=== PATIENT | male | born 1965 ===

== ENCOUNTER 2021-12-04 20:46 | Emergency (ER) | payer SELFPAY ==
--- NOTE | 2021-12-04 21:45 | ER ---
Nurse's Notes [facility] Name: Raffaele Castellanos Age: 56 yrs Sex: Male : 1965 Arrival Date: 12/04/2021 Time: 20:49 Bed 2 Private MD: Diagnosis: Cardiac arrest, cause unspecified;Asystole Presentation: 12/04 20:45 Chief complaint: Chief complaint: EMS states: "We arrived on scene at 1958. CPR had tw5 already been started by bystander and fire department. They had already shocked him once prior to us arriving. Hamzah was placed CPR was continued. Patient has been in V-fib this entire time.". 20:45 Care prior to arrival: CPR via thumper performed by bystander performed by EMS was tw5 defibrillated and is still in progress Placed on backboard. Medication(s) given: 10 rounds of epi given, 2 rounds of bicarb, 300 mg of amiodarone, followed by another 150 mg of amiodarone. See EMS CODE summary placed on chart for times. IV initiated. 18 GA, EJ, as well as an IO in right leg. Compressions began prior to arrival. 20:45 Method Of Arrival: EMS: [facility] tw5 20:45 Acuity: ANNE 1 tw5 Historical: - Home Meds: 20:55 losartan 100 mg oral tab 1 tab once daily [Active]; metoprolol succinate oral [Active]; tw5 amlodipine 5 mg tab 1 tab once daily [Active]; clopidogrel 75 mg oral tab 1 tab once daily [Active]; atorvastatin 80 mg oral tab 1 tab once daily [Active]; aspirin 81 mg Oral cpDR [Active]; - PMHx: 20:55 Hyperlipidemia; Hypertension; Myocardial infarction; Diabetes mellitus; tw5 - PSHx: 20:55 None; tw5 - Code Status:: Full code. Screenin:23 Abuse screen: unable to obtain. Nutritional screening: unable to obtain. Tuberculosis tw5 screening: unable to obtain. Assessment: 20:45 CPR assessment: unresponsive, pupils fixed \\T\\ dilated, no respiratory effort, intubated, tw5 Ambu ventilation, cyanotic. Cardiac rhythm is V fib. General: Behavior is unresponsive. Neuro: Level of Consciousness is unresponsive. Cardiovascular: Heart tones absent. Respiratory: Airway via oral intubation. 20:47 Cardiac rhythm is asystole. tw5 21:15 Reassessment: Dr. Rinaldi speaking with patient's and brother at this time in Room lp1 11. 21:30 General: Lunablessing Becerra Arrived at the bedside. . tw5 21:34 General: Jeremy is contacting the set up technician at this time. . tw5 22:56 General: Qi Castellanos () [phone]. as6 23:54 General: Body being released to [facility] home. [phone]. tw5 Vital Signs: 20:45 Weight 90.72 kg (R); tw5 20:45 no vitals to obtain. tw5 ED Course: 20:49 Patient arrived in ED. tw5 20:49 Tae Rinaldi MD is Attending Physician. mh7 20:56 Police notified at 20:57 contacted [place] [employer] to call the Woods Manager for mw2 the patient. 20:59 eSjal Mckinney is Primary Nurse. tw5 21:05 Triage completed. tw5 21:23 Patient has correct armband on for positive identification. CPR. tw5 21:25 [facility] contacted. . tw5 21:43 Tae Rinaldi MD is Pronouncing Provider. 7 Administered Medications: No medications were administered Outcome: 20:47 Outcome Patient tw5 20:47 Patient : Time of 20:47 Pronounced by Tae Rinaldi MD OR notified 20:47 Condition: 23:54 Patient left the ED. tw5 Signatures: Ashley Lopez, RN RN lp1 Anna Marie Muro mw2 Tae Rinaldi MD MD 7 Sejal Mckinney tw5 Dewey Maldonado, RN RN as6 Corrections: (The following items were deleted from the chart) 21:05 20:55 Chief complaint: tw5 tw5
--- NOTE | 2021-12-04 21:45 | EDPHYS ---
Physician Documentation [facility] Name: Raffaele Castellanos Age: 56 yrs Sex: Male : 1965 Arrival Date: 12/04/2021 Time: 20:49 Bed 2 Private MD: ED Physician Tae Rinaldi HPI: 12/04 21:03 This 56 yrs old Male presents to ER via Unassigned with complaints of CPR. mh7 21:03 Preceding the arrest, the patient collapsed, was dyspneic. The arrest occurred at home. mh7 Pre-hospital course: The arrest was witnessed by family. Bystanders at the scene did not perform CPR. EMS care prior to arrival: initiation of ACLS, peripheral IV, was successfully placed. intubation was successfully performed, orally, oxygen, 100% by ET tube. backboard, EMS on scene time was 19:59. Time elapsed prior to ACLS is unknown. ACLS has been in progress for 45 minutes. ACLS details: Initial rhythm was V-fib. The presenting rhythm is asystole. Airway: oral intubation, Medications given by EMS prior to arrival - Epinephrine IV x 10 doses, Amiodarone 300 mg IV push given, Calcium chloride, sodium bicarbonate, Defibrillated X 11, Response to therapy: continued arrest. Unable to obtain HPI due to comatose state. According to EMS, they received a call for patient with shortness of breath. Unerupted seen approximately 5 minutes after call they noted patient was unresponsive and in V. fib. They initiated ACLS protocol including intubation with an 8.0 endotracheal tube. They placed a right tibial intraosseous line. Patient was given epinephrine total of 10 doses, calcium chloride, sodium bicarbonate, and 11 defibrillatory shocks. During ACLS patient went into asystole. Upon arrival to the ED, he remained in asystole and without any signs of life including no spontaneous respirations, no spontaneous heartbeat or pulse, no response to any stimuli, and fixed dilated pupils. CPR was discontinued upon arrival patient pronounced at 2046.. Historical: - Home Meds: 20:55 losartan 100 mg oral tab 1 tab once daily [Active]; metoprolol succinate oral [Active]; tw5 amlodipine 5 mg tab 1 tab once daily [Active]; clopidogrel 75 mg oral tab 1 tab once daily [Active]; atorvastatin 80 mg oral tab 1 tab once daily [Active]; aspirin 81 mg Oral cpDR [Active]; - PMHx: 20:55 Hyperlipidemia; Hypertension; Myocardial infarction; Diabetes mellitus; tw5 - PSHx: 20:55 None; tw5 - Code Status:: Full code. ROS: 21:03 Unable to obtain ROS due to comatose state. [facility] Exam: 21:03 Head/Face: Normocephalic, atraumatic. 7 21:03 Chest/axilla: Normal chest wall appearance and motion. Nontender with no deformity. No lesions are appreciated. 21:03 Skin: Warm, dry with normal turgor. Normal color with no rashes, no lesions, and no evidence of cellulitis. 21:03 Constitutional: The patient appears Unresponsive 21:03 Eyes: Periorbital structures: appear normal, Pupils: are fixed and dilated. 21:03 ENT: Endotracheal tube in place. 21:03 Neck: External neck: is normal. 21:03 Cardiovascular: Rate: actual rate is 0 bpm, Asystole, Rhythm: asystole, Pulses: not palpable, Heart sounds: Absent, Edema: is not appreciated, JVD: is not appreciated. 21:03 Respiratory: Breath sounds: Equal breath sounds bilaterally with [id number], Respiratory rate: 0 No spontaneous respirations. 21:03 Abdomen/GI: Inspection: abdomen appears normal. 21:03 Back: No abnormal findings. 21:03 Musculoskeletal/extremity: Right proximal tibia intraosseous IV, no abnormal findings. 21:03 Neuro: No spontaneous movement, no response to any stimuli. Vital Signs: 20:45 Weight 90.72 kg (R); tw5 20:45 no vitals to obtain. tw5 MDM: 21:37 Differential diagnosis: arrythmia, cardiac arrest, respiratory arrest, traumatic mh7 injury, overdose, asphyxiation, renal failure. 21:41 Data reviewed: vital signs, nurses notes, EMS record. ED course: Patient pronounced 7 at 2046. Discussed with patient's and [id number]. Patient staff to inform [employer].. 21:44 Patient medically screened. [facility] Administered Medications: No medications were administered Disposition: 21:41 . [facility] Disposition Summary: 12/04/21 21:44 Patient Location: [facility] [employer] [facility] Pronouncing Physician: Tae Rinaldi Time of : 20:47 12/04/2021 [facility] Diagnosis - Cardiac arrest, cause unspecified [facility] - Asystole [facility] Signatures: Tae Rinaldi MD MD 7 [place] tw5
== END 2021-12-04 23:54 ==
LOC: ER 20:46
PROC: 5A12012 Performance of Cardiac Output, Single, Manual (ICD-10-PCS; principal; 2021-12-04)
DX: I46.9 Cardiac arrest, cause unspecified (principal); I10 Essential (primary) hypertension; I25.2 Old myocardial infarction; E11.9 Type 2 diabetes mellitus without complications; Z79.82 Long term (current) use of aspirin
CPT/HCPCS: 92950; 99285